=== PATIENT | female | born 1985 | race Caucasian/White ===

== ENCOUNTER 2018-05-24 12:56 | Emergency (ER) | payer OTHER ==
[~2018-05-24] VITALS: Ht 167.6 cm; Wt 80.3 kg
[~2018-05-24 12:56] MED LIST: ALBU.083IS; ALBU90OI INH; ALBU90OI61 INH; AMOX500; AZIT250 PO; AZIT500 PO; BENZ100A PO; CETI5 PO; DEXGUASY PO; DIPATR PO; DOXY100 PO; FAMO20 PO; HYDACE5 PO; METPHE10 PO; MULVITMINE PO; PRED10 PO; PROCODE120 PO; PROM25; PROM25 PO; Percocet 5-3251 EACH PO; Q-TUSSIN; RXDIPATR PO; RXPROCODSY PO; Zithromax250 MG PO; Zofran Odt4 MG SL
== END 2018-05-24 14:36 | disposition home or self-care (01) ==
LOC: ER 12:56
DX: M25.562 Pain in left knee (principal); J45.909 Unspecified asthma, uncomplicated; F17.200 Nicotine dependence, unspecified, uncomplicated; Z88.6 Allergy status to analgesic agent; Z88.0 Allergy status to penicillin; Z91.040 Latex allergy status; Z88.5 Allergy status to narcotic agent
CPT/HCPCS: 73110; 99283-25

== ENCOUNTER 2019-01-28 08:11 | Emergency (ER) | payer OTHER ==
[~2019-01-28] VITALS: Ht 167.6 cm; Wt 78.0 kg
[2019-01-28 09:39] LABS: BASOPHILS ABSOLUTE AUTO 0.01 K/mm3 (0.00-0.23); BASOPHILS PERCENT AUTO 0 % (0-2); EOSINOPHILS PERCENT AUTO 0 % (0-6); Hematocrit 36.3 % (33.0-51.0); Hemoglobin 12.2 g/dL (11.5-16.0); IMMATURE GRAN PERCENT AUTO 0 % (0-1); LYMPHOCYTES ABSOLUTE AUTO 0.45 K/mm3 (0.84-5.20); LYMPHOCYTES PERCENT AUTO 15 % (21-46); MONOCYTES ABSOLUTE AUTO 0.35 K/mm3 (0.16-1.47); MONOCYTES PERCENT AUTO 12 % (4-13); Mean Corpuscular HGB 30.3 pg (26.0-34.0); Mean Corpuscular HGB Conc 33.6 g/dL (31.5-36.5); Mean Corpuscular Volume 90 fL (80-100); Mean Platelet Volume 10.2 fL (9.1-12.4); NEUTROPHILS ABSOLUTE AUTO 2.23 K/mm3 (1.96-9.15); NEUTROPHILS PERCENT AUTO 73 % (41-73); Platelet Count 164 K/mm3 (150-400); RDW Coefficient Variation 12.2 % (11.7-14.2); RDW Standard Deviation 40.3 fL (35.1-46.3); Red Blood Cell Count 4.02 M/mm3 (3.80-5.20); White Blood Cell Count 3.04 K/mm3 (4.00-11.30)
[2019-01-28 10:01] LABS: Alanine Aminotransfer (ALT/SGP 19 U/L (12-78); Albumin, Blood 3.6 g/dL (3.4-5.0); Albumin/Globulin Ratio 1.1 (0.8-1.8); Alk Phos 56 U/L (50-136); Anion Gap 11 mmol/L (6-16); Aspartate Aminotrans (AST/SGOT 18 U/L (12-37); Bilirubin, Total 0.5 mg/dL (0.1-1.0); Blood Urea Nitrogen 9 mg/dL (8-24); CO2, Blood 21 mmol/L (21-32); Calcium, Blood 8.4 mg/dL (8.5-10.1); Chloride, Blood 107 mmol/L (98-108); Creatinine, Blood 0.75 mg/dL (0.40-1.00); Globulin, Blood 3.3 g/dL (2.2-4.0); Glomerular Filtration Rate >60 (60-); Glucose, Blood 97 mg/dL (70-99); Potassium, Blood 3.2 mmol/L (3.5-5.5); Sodium, Blood 139 mmol/L (136-145); Total Protein, Blood 6.9 g/dL (6.4-8.2)
[2019-01-28] MEDS ORDERED: POTCHL20ER PO (10:15)
[2019-01-28] MEDS ORDERED: ONDA4ODT MM (10:26)
== END 2019-01-28 10:55 | disposition home or self-care (01) ==
LOC: ER 08:11
PROVIDERS: Physician Assistant
DX: B34.9 Viral infection, unspecified (principal); R11.2 Nausea with vomiting, unspecified; R55 Syncope and collapse; Z88.0 Allergy status to penicillin; Z91.040 Latex allergy status; Z88.5 Allergy status to narcotic agent; Z79.899 Other long term (current) drug therapy; Z87.891 Personal history of nicotine dependence
CPT/HCPCS: 36415; 80053; 83690; 85025; 93005; 93010; 96361; 96374; 99284-25; J2405; J7030

== ENCOUNTER 2019-01-30 07:14 | Emergency (ER) | payer OTHER ==
[~2019-01-30] VITALS: Ht 165.1 cm; Wt 78.0 kg
[~2019-01-30 07:14] MED LIST changes: +ONDA4ODT MM; +POTCHL20ER PO
[2019-01-30 08:21] LABS: BASOPHILS PERCENT AUTO 0 % (0-2); EOSINOPHILS PERCENT AUTO 0 % (0-6); Hematocrit 38.1 % (33.0-51.0); Hemoglobin 12.7 g/dL (11.5-16.0); IMMATURE GRAN ABSOLUTE AUTO 0.01 K/mm3 (0.00-0.10); IMMATURE GRAN PERCENT AUTO 1 % (0-1); LYMPHOCYTES ABSOLUTE AUTO 0.44 K/mm3 (0.84-5.20); LYMPHOCYTES PERCENT AUTO 22 % (21-46); MONOCYTES ABSOLUTE AUTO 0.25 K/mm3 (0.16-1.47); MONOCYTES PERCENT AUTO 13 % (4-13); Mean Corpuscular HGB 30.2 pg (26.0-34.0); Mean Corpuscular HGB Conc 33.3 g/dL (31.5-36.5); Mean Corpuscular Volume 91 fL (80-100); Mean Platelet Volume 10.1 fL (9.1-12.4); NEUTROPHILS ABSOLUTE AUTO 1.29 K/mm3 (1.96-9.15); NEUTROPHILS PERCENT AUTO 65 % (41-73); Platelet Count 163 K/mm3 (150-400); RDW Coefficient Variation 12.1 % (11.7-14.2); RDW Standard Deviation 40.2 fL (35.1-46.3); Red Blood Cell Count 4.21 M/mm3 (3.80-5.20); White Blood Cell Count 1.99 K/mm3 (4.00-11.30)
[2019-01-30 08:39] LABS: Alanine Aminotransfer (ALT/SGP 28 U/L (12-78); Albumin, Blood 3.7 g/dL (3.4-5.0); Albumin/Globulin Ratio 1.1 (0.8-1.8); Alk Phos 57 U/L (50-136); Anion Gap 12 mmol/L (6-16); Aspartate Aminotrans (AST/SGOT 27 U/L (12-37); Bilirubin, Total 0.5 mg/dL (0.1-1.0); Blood Urea Nitrogen 9 mg/dL (8-24); CO2, Blood 22 mmol/L (21-32); Calcium, Blood 8.6 mg/dL (8.5-10.1); Chloride, Blood 108 mmol/L (98-108); Creatinine, Blood 0.69 mg/dL (0.40-1.00); Globulin, Blood 3.3 g/dL (2.2-4.0); Glomerular Filtration Rate >60 (60-); Glucose, Blood 93 mg/dL (70-99); Sodium, Blood 142 mmol/L (136-145)
[2019-01-30 09:44] LABS: Bilirubin, Urine Neg (Neg); Blood, Urine 1+ (Neg); Glucose Qualitative, Urine Neg (Neg); Ketones, Urine 4+ (Neg); Leukocyte Esterase, Urine 1+ (Neg); Nitrite, Urine Neg (Neg); Protein, Urine 2+ (Neg); Urobilinogen, Urine 1+ (Normal); pH, Urine 6.5 (5.0-8.0)
[2019-01-30 09:49] LABS: Appearance, Urine Clear (Clear); Color, Urine Yellow (P-Yellow)
[2019-01-30 09:54] LABS: Red Blood Cells, Urine 0-2 /hpf (0-2); White Blood Cells, Urine 0-2 /hpf (0-5)
[2019-01-30 09:55] LABS: Bacteria Rare /hpf; Squamous Epithelial Cells Few /hpf (Few)
[2019-01-30] MEDS ORDERED: PROM25 PO (11:24)
== END 2019-01-30 12:00 | disposition home or self-care (01) ==
LOC: ER 07:14
PROVIDERS: Emergency Medicine
DX: K52.9 Noninfective gastroenteritis and colitis, unspecified (principal); E86.0 Dehydration; J45.909 Unspecified asthma, uncomplicated; Z88.0 Allergy status to penicillin; Z88.8 Allergy status to other drugs, medicaments and biological substances; Z91.040 Latex allergy status; Z88.5 Allergy status to narcotic agent; Z79.899 Other long term (current) drug therapy
CPT/HCPCS: 36415; 74177; 80053; 81001; 83690; 83735; 84703; 85025; 87086; 96361-59; 96374-59; 96375-59; 99284-25; J2060; J2405; J2550; J3010; J7120; Q9967

== ENCOUNTER 2019-04-23 13:08 | Emergency (ER) | payer OTHER ==
[~2019-04-23] VITALS: Ht 165.1 cm; Wt 78.0 kg
[2019-04-23] MEDS ORDERED: ZYRTEC10 M1 PO (13:29)
[2019-04-23] MEDS ORDERED: Flonase 0.05% N16 GM (13:29)
== END 2019-04-23 13:40 | disposition home or self-care (01) ==
LOC: ER 13:08
DX: J30.1 Allergic rhinitis due to pollen (principal); Z88.6 Allergy status to analgesic agent; Z88.0 Allergy status to penicillin; Z91.040 Latex allergy status; Z88.5 Allergy status to narcotic agent; Z87.891 Personal history of nicotine dependence
CPT/HCPCS: 96372; 99282-25; J3301

== ENCOUNTER 2021-02-25 09:29 | Emergency (ER) | payer OTHER ==
[~2021-02-25] VITALS: Ht 167.6 cm; Wt 86.2 kg
[~2021-02-25 09:29] MED LIST changes: +Flonase 0.05% N16 GM; +ZYRTEC10 M1 PO
[2021-02-25] MEDS ORDERED: HYDR1TAB94 PO (11:24)
[2021-02-25] MEDS ORDERED: PRED20 PO (11:24)
[2021-02-25] MEDS ORDERED: CLIN300 PO (11:24)
== END 2021-02-25 11:56 | disposition home or self-care (01) ==
LOC: ER 09:29
DX: K08.89 Other specified disorders of teeth and supporting structures (principal); L03.211 Cellulitis of face; Z88.6 Allergy status to analgesic agent; Z88.0 Allergy status to penicillin; Z91.040 Latex allergy status; Z88.5 Allergy status to narcotic agent
CPT/HCPCS: 70480; 99283-25; A9270; J1100

== ENCOUNTER 2021-08-08 13:23 | Emergency (ER) | payer OTHER ==
[~2021-08-08] VITALS: Ht 167.6 cm; Wt 74.8 kg
[~2021-08-08 13:23] MED LIST changes: +CLIN300 PO; +HYDR1TAB94 PO; +PRED20 PO
[2021-08-08] MEDS ORDERED: ONDA4ODT MM (14:24)
[2021-08-08] MEDS ORDERED: BENZ100A PO (14:40)
== END 2021-08-08 14:55 | disposition home or self-care (01) ==
LOC: ER 13:23
DX: U07.1 COVID-19 (principal); J45.909 Unspecified asthma, uncomplicated; Z88.6 Allergy status to analgesic agent; Z88.0 Allergy status to penicillin; Z91.040 Latex allergy status; Z88.5 Allergy status to narcotic agent; Z79.899 Other long term (current) drug therapy; Z87.891 Personal history of nicotine dependence
CPT/HCPCS: 96374; 99283-25; J2405

== ENCOUNTER 2021-08-12 07:01 | Emergency (ER) | payer OTHER ==
[~2021-08-12] VITALS: Ht 165.1 cm; Wt 81.7 kg
[2021-08-12] MEDS ORDERED: PROC5 PO (08:04)
== END 2021-08-12 08:21 | disposition home or self-care (01) ==
LOC: ER 07:01
DX: U07.1 COVID-19 (principal); J45.909 Unspecified asthma, uncomplicated; Z88.0 Allergy status to penicillin; Z88.5 Allergy status to narcotic agent; Z91.040 Latex allergy status; Z79.52 Long term (current) use of systemic steroids; Z79.899 Other long term (current) drug therapy; F17.210 Nicotine dependence, cigarettes, uncomplicated
CPT/HCPCS: 36415; 71045; 96374; 99283-25; A9270; J0780

== ENCOUNTER 2023-07-08 08:25 | Emergency (ER) | payer OTHER ==
[~2023-07-08] VITALS: Ht 170.2 cm; Wt 81.7 kg
[~2023-07-08 08:25] MED LIST changes: +PROC5 PO
[2023-07-08] MEDS ORDERED: IBUP400 PO (09:30)
[2023-07-08] MEDS ORDERED: EPIPEN0.3 MG/0.3 IM (10:20)
[2023-07-08 10:51] VITALS: BP 125/75
== END 2023-07-08 10:50 | disposition home or self-care (01) ==
LOC: ER 08:25
DX: T63.441A Toxic effect of venom of bees, accidental (unintentional), initial encounter (principal); F17.200 Nicotine dependence, unspecified, uncomplicated; Z88.0 Allergy status to penicillin; Z88.8 Allergy status to other drugs, medicaments and biological substances; Z88.6 Allergy status to analgesic agent; Z88.5 Allergy status to narcotic agent; Z91.040 Latex allergy status; Z79.899 Other long term (current) drug therapy
CPT/HCPCS: 96372-59; 96374; 96375; 99284-25; J0171; J1200; J2930

== ENCOUNTER 2024-01-10 10:00 | Emergency (ER) | payer OTHER ==
[~2024-01-10] VITALS: Ht 167.6 cm; Wt 81.7 kg
[~2024-01-10 10:00] MED LIST changes: +EPIPEN0.3 MG/0.3 IM; +IBUP400 PO
[2024-01-10 12:25] LABS: BASOPHILS ABSOLUTE AUTO 0.07 K/mm3 (0.00-0.23); BASOPHILS PERCENT AUTO 1 % (0-2); EOSINOPHILS ABSOLUTE AUTO 0.15 K/mm3 (0.00-0.68); EOSINOPHILS PERCENT AUTO 1 % (0-6); Hematocrit 42.8 % (33.0-51.0); Hemoglobin 14.1 g/dL (11.5-16.0); IMMATURE GRAN ABSOLUTE AUTO 0.03 K/mm3 (0.00-0.10); IMMATURE GRAN PERCENT AUTO 0 % (0-1); LYMPHOCYTES ABSOLUTE AUTO 2.61 K/mm3 (0.84-5.20); LYMPHOCYTES PERCENT AUTO 24 % (21-46); MONOCYTES ABSOLUTE AUTO 0.59 K/mm3 (0.16-1.47); MONOCYTES PERCENT AUTO 5 % (4-13); Mean Corpuscular HGB 30.1 pg (26.0-34.0); Mean Corpuscular HGB Conc 32.9 g/dL (31.5-36.5); Mean Corpuscular Volume 92 fL (80-100); Mean Platelet Volume 9.5 fL (9.1-12.4); NEUTROPHILS ABSOLUTE AUTO 7.57 K/mm3 (1.96-9.15); NEUTROPHILS PERCENT AUTO 69 % (41-73); Platelet Count 315 K/mm3 (150-400); RDW Coefficient Variation 12.4 % (11.7-14.2); RDW Standard Deviation 40.9 fL (35.1-46.3); Red Blood Cell Count 4.68 M/mm3 (3.80-5.20); White Blood Cell Count 11.02 K/mm3 (4.00-11.30)
[2024-01-10] MEDS ORDERED: Dexamethasone Sod Phos 10 MG/ML 1ML VIAL PO ONE (12:35)
[2024-01-10 12:42] LABS: Bilirubin, Total 0.3 mg/dL (0.1-1.0); Bun/Creatinine Ratio 15.3 (12.0-20.0); Calcium, Blood 9.3 mg/dL (8.5-10.1); Creatinine, Blood 0.72 mg/dL (0.40-1.00); Globulin, Blood 3.9 g/dL (2.2-4.0); Potassium, Blood 3.9 mmol/L (3.5-5.5); Total Protein, Blood 7.9 g/dL (6.4-8.2)
[2024-01-10 14:02] VITALS: BP 131/86
[2024-01-10] MEDS ORDERED: Clindamycin HC150 MG PO (14:29)
== END 2024-01-10 14:40 | disposition home or self-care (01) ==
LOC: ER 10:00
PROVIDERS: Student in an Organized Health Care Education/Training Program
DX: J02.9 Acute pharyngitis, unspecified (principal); F17.210 Nicotine dependence, cigarettes, uncomplicated; J45.909 Unspecified asthma, uncomplicated; Z88.0 Allergy status to penicillin; Z88.5 Allergy status to narcotic agent; Z88.6 Allergy status to analgesic agent; Z91.040 Latex allergy status
CPT/HCPCS: 70491; 80053; 85025; 99285-25; J1100; Q9967

== ENCOUNTER 2024-05-27 15:42 | Emergency (ER) | payer OTHER ==
[~2024-05-27] VITALS: Ht 167.6 cm; Wt 90.7 kg
[~2024-05-27 15:42] MED LIST changes: +Clindamycin HC150 MG PO
[2024-05-27 15:44] VITALS: BP 131/94
[2024-05-27 16:05] LABS: BASOPHILS ABSOLUTE AUTO 0.05 K/mm3 (0.00-0.23); BASOPHILS PERCENT AUTO 1 % (0-2); EOSINOPHILS ABSOLUTE AUTO 0.11 K/mm3 (0.00-0.68); EOSINOPHILS PERCENT AUTO 1 % (0-6); Hematocrit 40.7 % (33.0-51.0); Hemoglobin 13.5 g/dL (11.5-16.0); IMMATURE GRAN ABSOLUTE AUTO 0.03 K/mm3 (0.00-0.10); IMMATURE GRAN PERCENT AUTO 0 % (0-1); LYMPHOCYTES ABSOLUTE AUTO 1.75 K/mm3 (0.84-5.20); LYMPHOCYTES PERCENT AUTO 23 % (21-46); MONOCYTES ABSOLUTE AUTO 0.43 K/mm3 (0.16-1.47); MONOCYTES PERCENT AUTO 6 % (4-13); Mean Corpuscular HGB 30.3 pg (26.0-34.0); Mean Corpuscular HGB Conc 33.2 g/dL (31.5-36.5); Mean Corpuscular Volume 92 fL (80-100); Mean Platelet Volume 9.3 fL (9.1-12.4); NEUTROPHILS ABSOLUTE AUTO 5.37 K/mm3 (1.96-9.15); NEUTROPHILS PERCENT AUTO 69 % (41-73); Platelet Count 256 K/mm3 (150-400); RDW Coefficient Variation 12.2 % (11.7-14.2); RDW Standard Deviation 40.6 fL (35.1-46.3); Red Blood Cell Count 4.45 M/mm3 (3.80-5.20); White Blood Cell Count 7.74 K/mm3 (4.00-11.30)
[2024-05-27 16:30] LABS: Albumin, Blood 3.6 g/dL (3.4-5.0); Bilirubin, Total 0.3 mg/dL (0.1-1.0); Bun/Creatinine Ratio 7.5 (12.0-20.0); Calcium, Blood 8.6 mg/dL (8.5-10.1); Creatinine, Blood 0.81 mg/dL (0.40-1.00); Globulin, Blood 3.5 g/dL (2.2-4.0); Potassium, Blood 3.6 mmol/L (3.5-5.5); Total Protein, Blood 7.1 g/dL (6.4-8.2)
== END 2024-05-27 18:44 | disposition left against medical advice (07) ==
LOC: ER 15:42
PROVIDERS: Physician Assistant
DX: R07.89 Other chest pain (principal); R11.0 Nausea; R06.02 Shortness of breath; Z53.29 Procedure and treatment not carried out because of patient's decision for other reasons
CPT/HCPCS: 71046; 80053; 84484; 84703; 85025; 93005; 93010; 99283-25

== ENCOUNTER 2024-05-29 23:45 | Emergency (ER) | payer OTHER ==
[~2024-05-29] VITALS: Ht 167.6 cm; Wt 90.7 kg
[2024-05-30 00:11] LABS: BASOPHILS ABSOLUTE AUTO 0.04 K/mm3 (0.00-0.23); BASOPHILS PERCENT AUTO 1 % (0-2); EOSINOPHILS ABSOLUTE AUTO 0.11 K/mm3 (0.00-0.68); EOSINOPHILS PERCENT AUTO 2 % (0-6); Hematocrit 41.7 % (33.0-51.0); IMMATURE GRAN ABSOLUTE AUTO 0.02 K/mm3 (0.00-0.10); IMMATURE GRAN PERCENT AUTO 0 % (0-1); LYMPHOCYTES ABSOLUTE AUTO 1.12 K/mm3 (0.84-5.20); LYMPHOCYTES PERCENT AUTO 16 % (21-46); MONOCYTES ABSOLUTE AUTO 0.75 K/mm3 (0.16-1.47); MONOCYTES PERCENT AUTO 11 % (4-13); Mean Corpuscular HGB 29.7 pg (26.0-34.0); Mean Corpuscular HGB Conc 33.6 g/dL (31.5-36.5); Mean Corpuscular Volume 88 fL (80-100); Mean Platelet Volume 9.4 fL (9.1-12.4); NEUTROPHILS ABSOLUTE AUTO 4.99 K/mm3 (1.96-9.15); NEUTROPHILS PERCENT AUTO 71 % (41-73); Platelet Count 248 K/mm3 (150-400); RDW Coefficient Variation 12.3 % (11.7-14.2); RDW Standard Deviation 39.8 fL (35.1-46.3); Red Blood Cell Count 4.72 M/mm3 (3.80-5.20); White Blood Cell Count 7.03 K/mm3 (4.00-11.30)
[2024-05-30] MEDS ORDERED: LORA10ER PO (00:23)
[2024-05-30 00:28] LABS: Alanine Aminotransfer (ALT/SGP 41 U/L (12-78); Albumin/Globulin Ratio 1.1 (0.8-1.8); Alk Phos 84 U/L (50-136); Anion Gap 13 mmol/L (3-11); Aspartate Aminotrans (AST/SGOT 17 U/L (12-37); Bilirubin, Total 0.5 mg/dL (0.1-1.0); Blood Urea Nitrogen 7 mg/dL (8-24); Bun/Creatinine Ratio 7.7 (12.0-20.0); CO2, Blood 21 mmol/L (21-32); Calcium, Blood 8.9 mg/dL (8.5-10.1); Chloride, Blood 108 mmol/L (98-108); Creatinine, Blood 0.91 mg/dL (0.40-1.00); Globulin, Blood 3.8 g/dL (2.2-4.0); Glomerular Filtration Rate 83 (60-); Glucose, Blood 115 mg/dL (70-99); Potassium, Blood 3.8 mmol/L (3.5-5.5); Sodium, Blood 138 mmol/L (136-145); Total Protein, Blood 7.8 g/dL (6.4-8.2)
[2024-05-30] MEDS ORDERED: Ketorolac Tromethamine 30mg Vial IV ONE (00:55)
[2024-05-30 01:37] LABS: Beta HCG, Quantitative, Serum <1 mIU/mL (0-3)
[2024-05-30 02:00] VITALS: BP 132/75
== END 2024-05-30 02:10 | disposition home or self-care (01) ==
LOC: ER 23:45
PROVIDERS: Student in an Organized Health Care Education/Training Program
DX: R07.9 Chest pain, unspecified (principal); J45.909 Unspecified asthma, uncomplicated; Z86.16 Personal history of COVID-19; Z87.891 Personal history of nicotine dependence; Z79.899 Other long term (current) drug therapy; Z88.0 Allergy status to penicillin; Z88.6 Allergy status to analgesic agent; Z91.040 Latex allergy status; Z88.5 Allergy status to narcotic agent; Z88.8 Allergy status to other drugs, medicaments and biological substances
CPT/HCPCS: 71046; 80053; 84484; 84702; 85025; 85379; 93005; 93010; 96374; 99285-25; J1885

== ENCOUNTER 2024-06-08 14:28 | Emergency (ER) | payer OTHER ==
[~2024-06-08] VITALS: Ht 167.6 cm; Wt 90.7 kg
[~2024-06-08 14:28] MED LIST changes: +LORA10ER PO
[2024-06-08 14:32] VITALS: BP 106/87
[2024-06-08] MEDS ORDERED: EPIPEN0.3 MG/0.1 INJ (15:25)
[2024-06-08] MEDS ORDERED: Famotidine 10 MG/ML 2ML Vial IV ONE (15:25)
[2024-06-08] MEDS ORDERED: Dexamethasone Sod Phos 10 MG/ML 1ML VIAL IV ONE (15:30)
[2024-06-08] MEDS ORDERED: Famotidine 20 MG Tab PO ONE (15:30)
== END 2024-06-08 15:40 | disposition home or self-care (01) ==
LOC: ER 14:28
DX: T63.441A Toxic effect of venom of bees, accidental (unintentional), initial encounter (principal); J45.909 Unspecified asthma, uncomplicated; Z79.899 Other long term (current) drug therapy; Z88.5 Allergy status to narcotic agent; Z88.0 Allergy status to penicillin; Z88.8 Allergy status to other drugs, medicaments and biological substances; Z91.030 Bee allergy status; Z91.040 Latex allergy status; Z87.891 Personal history of nicotine dependence
CPT/HCPCS: 96374; 99282-25; A9270; J1100

== ENCOUNTER 2024-11-20 02:35 | Emergency (ER) | payer OTHER ==
[~2024-11-20] VITALS: Ht 167.6 cm; Wt 90.7 kg
[~2024-11-20 02:35] MED LIST changes: +EPIPEN0.3 MG/0.1 INJ
[2024-11-20 03:16] LABS: CORONAVIRUS COVID-19 AG Negative (NEGATIVE); INFLUENZA A AG Negative (NEGATIVE); INFLUENZA B AG Negative (NEGATIVE)
[2024-11-20] MEDS ORDERED: Ondansetron HCl 2 MG / ML 2ML Vial IV ONE (06:15)
[2024-11-20] MEDS ORDERED: Ipratropium/Albuterol SulF 2.5-0.5MG/3 ML Amp INH ONE (06:15)
[2024-11-20] MEDS ORDERED: NS 1,000 ML IV SCH (06:15)
[2024-11-20] MEDS ORDERED: Ketorolac Tromethamine 30mg Vial IV ONE (06:15)
[2024-11-20 06:39] LABS: BASOPHILS ABSOLUTE AUTO 0.02 K/mm3 (0.00-0.23); BASOPHILS PERCENT AUTO 1 % (0-2); EOSINOPHILS PERCENT AUTO 0 % (0-6); Hematocrit 44.6 % (33.0-51.0); Hemoglobin 15.3 g/dL (11.5-16.0); IMMATURE GRAN ABSOLUTE AUTO 0.02 K/mm3 (0.00-0.10); IMMATURE GRAN PERCENT AUTO 1 % (0-1); LYMPHOCYTES ABSOLUTE AUTO 1.02 K/mm3 (0.84-5.20); LYMPHOCYTES PERCENT AUTO 24 % (21-46); MONOCYTES ABSOLUTE AUTO 0.47 K/mm3 (0.16-1.47); MONOCYTES PERCENT AUTO 11 % (4-13); Mean Corpuscular HGB 29.8 pg (26.0-34.0); Mean Corpuscular HGB Conc 34.3 g/dL (31.5-36.5); Mean Corpuscular Volume 87 fL (80-100); Mean Platelet Volume 9.4 fL (9.1-12.4); NEUTROPHILS ABSOLUTE AUTO 2.78 K/mm3 (1.96-9.15); NEUTROPHILS PERCENT AUTO 64 % (41-73); Platelet Count 233 K/mm3 (150-400); RDW Coefficient Variation 12.3 % (11.7-14.2); RDW Standard Deviation 39.3 fL (35.1-46.3); Red Blood Cell Count 5.13 M/mm3 (3.80-5.20); White Blood Cell Count 4.31 K/mm3 (4.00-11.30)
[2024-11-20 07:08] LABS: Bilirubin, Total 0.4 mg/dL (0.1-1.0); Bun/Creatinine Ratio 11.3 (12.0-20.0); Calcium, Blood 9.5 mg/dL (8.5-10.1); Creatinine, Blood 0.88 mg/dL (0.40-1.00); Globulin, Blood 3.9 g/dL (2.2-4.0); Potassium, Blood 3.3 mmol/L (3.5-5.5); Total Protein, Blood 7.9 g/dL (6.4-8.2)
[2024-11-20] MEDS ORDERED: Potassium Chloride 20 MEQ TabCR PO ONE (07:15)
[2024-11-20] MEDS ORDERED: PredniSONE 20 MG Tab PO ONE (07:40)
[2024-11-20] MEDS ORDERED: RX Prepack Albuterol 1 PREPACK/6.7 GM INH UD ONE (07:40)
[2024-11-20] MEDS ORDERED: ONDA4ODT MM (07:42)
[2024-11-20] MEDS ORDERED: PRED20 PO (07:42)
[2024-11-20 08:29] VITALS: BP 131/76
== END 2024-11-20 08:30 | disposition home or self-care (01) ==
LOC: ER 02:35
PROVIDERS: Emergency Medicine; Student in an Organized Health Care Education/Training Program
DX: J45.901 Unspecified asthma with (acute) exacerbation (principal); B34.9 Viral infection, unspecified; E86.0 Dehydration; E87.6 Hypokalemia; F17.210 Nicotine dependence, cigarettes, uncomplicated; Z88.0 Allergy status to penicillin; Z88.6 Allergy status to analgesic agent; Z88.5 Allergy status to narcotic agent; Z91.040 Latex allergy status; Z88.8 Allergy status to other drugs, medicaments and biological substances; Z79.899 Other long term (current) drug therapy
CPT/HCPCS: 71045; 80053; 83690; 83735; 85025; 87428-QW; 94640; 94664; 96361; 96374; 96375; 99283-25; A9270; J1885; J2405; J7030; J7512

== ENCOUNTER 2025-11-03 08:41 | Emergency (ER) | payer OTHER ==
[~2025-11-03] VITALS: Ht 167.6 cm; Wt 90.7 kg
[2025-11-03] MEDS ORDERED: ALBU90OI INH (08:59)
[2025-11-03] MEDS ORDERED: Albuterol 2.5 MG/3 ML VIAL INH SCH (09:00)
[2025-11-03] MEDS ORDERED: NS 1,000 ML IV SCH (09:55)
[2025-11-03 10:29] LABS: BASOPHILS ABSOLUTE AUTO 0.05 K/mm3 (0.00-0.23); BASOPHILS PERCENT AUTO 1 % (0-2); EOSINOPHILS ABSOLUTE AUTO 0.19 K/mm3 (0.00-0.68); EOSINOPHILS PERCENT AUTO 5 % (0-6); Hematocrit 42.1 % (33.0-51.0); Hemoglobin 14.3 g/dL (11.5-16.0); IMMATURE GRAN ABSOLUTE AUTO 0.01 K/mm3 (0.00-0.10); IMMATURE GRAN PERCENT AUTO 0 % (0-1); LYMPHOCYTES ABSOLUTE AUTO 1.78 K/mm3 (0.84-5.20); LYMPHOCYTES PERCENT AUTO 45 % (21-46); MONOCYTES ABSOLUTE AUTO 0.47 K/mm3 (0.16-1.47); MONOCYTES PERCENT AUTO 12 % (4-13); Mean Corpuscular HGB Conc 34.0 g/dL (31.5-36.5); Mean Corpuscular Volume 90 fL (80-100); NEUTROPHILS ABSOLUTE AUTO 1.43 K/mm3 (1.96-9.15); NEUTROPHILS PERCENT AUTO 36 % (41-73); NRBC ABSOLUTE 0.00 K/mm3 (0.00-0.02); NRBC Auto 0.0 /100 WBC (0.0-0.2); Platelet Count 281 K/mm3 (150-400); RDW Coefficient Variation 12.2 % (11.7-14.2); RDW Standard Deviation 40.3 fL (35.1-46.3)
[2025-11-03 10:56] LABS: Alanine Aminotransfer (ALT/SGP 47.0 U/L (12-78); Albumin, Blood 4.0 g/dL (3.4-5.0); Albumin/Globulin Ratio 1.1 (0.8-1.8); Anion Gap 10.0 mmol/L (3-11); Aspartate Aminotrans (AST/SGOT 23.0 U/L (12-37); Bilirubin, Total 0.6 mg/dL (0.1-1.0); Blood Urea Nitrogen 11.0 mg/dL (8-24); CO2, Blood 23.0 mmol/L (21-32); Calcium, Blood 9.2 mg/dL (8.5-10.1); Chloride, Blood 105.0 mmol/L (98-108); Creatinine, Blood 0.82 mg/dL (0.40-1.00); Globulin, Blood 3.7 g/dL (2.2-4.0); Glucose, Blood 121.0 mg/dL (70-99); Potassium, Blood 3.1 mmol/L (3.5-5.5); Sodium, Blood 135.0 mmol/L (136-145); Total Protein, Blood 7.7 g/dL (6.4-8.2)
[2025-11-03 11:12] LABS: Influenza A, PCR NEGATIVE (NEGATIVE); Influenza B, PCR NEGATIVE (NEGATIVE); Resp Syncytial Virus, PCR NEGATIVE (NEGATIVE); SARS-Cov-2 (COVID-19) PCR, MMC NEGATIVE (NEGATIVE)
[2025-11-03 11:52] VITALS: BP 141/81
[2025-11-03] MEDS ORDERED: ALBU2.5V5 NEB (11:56)
[2025-11-03] MEDS ORDERED: METPRE4DP PO (11:56)
== END 2025-11-03 12:06 | disposition home or self-care (01) ==
LOC: ER 08:41
PROVIDERS: Emergency Medicine
DX: J45.901 Unspecified asthma with (acute) exacerbation (principal); J45.909 Unspecified asthma, uncomplicated; F17.200 Nicotine dependence, unspecified, uncomplicated; Z88.0 Allergy status to penicillin; Z88.5 Allergy status to narcotic agent; Z88.6 Allergy status to analgesic agent; Z91.030 Bee allergy status; Z88.8 Allergy status to other drugs, medicaments and biological substances
CPT/HCPCS: 71046; 80053; 85025; 87637; 96374; 99285-25; A9270; J2919; J7030